=== PATIENT | female | born 1980 | race Caucasian/White ===

== ENCOUNTER 2019-03-31 17:09 | Emergency (ER) | payer OTHER ==
[~2019-03-31] VITALS: Ht 170.2 cm; Wt 113.4 kg
[~2019-03-31 17:09] MED LIST: IBUPROFEN800 MG PO; NORCO 5-325 TA1 EACH PO; VICODIN 5-5001 EACH PO; WELLBUTRIN XL300 MG PO
[2019-03-31] MEDS ORDERED: DULOXETINE HCL60 MG PO (18:33)
[2019-03-31] MEDS ORDERED: ZITHROMAX250 MG PO (19:55)
[2019-03-31] MEDS ORDERED: TRAMADOL HCL50 MG PO (19:55)
== END 2019-03-31 20:04 | disposition home or self-care (01) ==
LOC: ED 17:09
DX: J20.9 Acute bronchitis, unspecified (principal); F17.200 Nicotine dependence, unspecified, uncomplicated
CPT/HCPCS: 71046; 99284-25